=== PATIENT | female | born 1990 | race Caucasian/White ===

== ENCOUNTER 2023-08-09 13:01 | Emergency (ER) | payer BC, SELFPAY ==
--- NOTE | ~2023-08-09 | XR_ITS ---
EXAMINATION: XR chest 2V DATE: 08/09/2023 13:47 INDICATION: Cough and shortness of breath TECHNIQUE: PA and lateral views of the chest are obtained. COMPARISON: None available FINDINGS: There are minimal airspace opacities of the right mid and lower lung zones. Calcified nodul es of the left lower lung zone are consistent with old granulomatous disease. No pleural effusion or pneumothorax. The cardiomediastinal silhouette is normal. There is mild thoracic spondylosis. IMPRESSION: 1. Minimal airspace opacities of the right middle lower lung zones, likely pneumonia. Reviewed, dictated and finalized at location [facility] IMPRESSION: 1. Minimal airspace opacities of the right middle lower lung zones, likely pneu monia.
[2023-08-09 13:12] VITALS: BP 127/77; PULSE 87; RESP 18; TEMP 37.4; O2SAT 100
--- NOTE | 2023-08-09 13:37 | ED.GENADULT ---
HPI - General Adult General Chief complaint: Upper Respiratory Infection Stated complaint: cough causing sob Source: patient Mode of arrival: ambulatory Limitations: no limitations History of Present Illness HPI narrative: Patient presents for evaluation of respiratory symptoms. She indicates she tested positive for influenza last week at a clinic in [place], [place]. She was told she had otitis media on the left. She was given a prescription for azithromycin which she has taken. She still has some fullness in her ears however she states she feels like she no longer has an ear infection . She reports SOB and developed chest pain today that radiates into her back. She denies any fever, sore throat, nausea, vomiting, diarrhea. She does not smoke. She is not taking any OTC meds for her symptoms. Related Data Allergies Allergy/AdvReac Type Severity Reaction Status Date / Time No Known Allergies Allergy Unverified 12/13/18 17:22 Review of Systems Review of Systems: CONSTITUTIONAL: Denies fever, chills, or sweats. EYES: Denies visual changes, redness, or discharge. ENT: Reports fullness in both ears. Denies rhinorrhea, congestion, sore throat. CARDIOVASCULAR: Reports chest pain as of today. Denies palpitations, or edema. RESPIRATORY: Reports cough and shortness of breath GASTROINTESTINAL: Denies abdominal pain, nausea, vomiting, or diarrhea. GENITOURINARY: Denies dysuria or hematuria. SKIN: Denies rash or itching. MUSCULOSKELETAL: Denies back pain, joint pain, or myalgia. NEUROLOGIC: Denies headache, numbness, dizziness, or weakness. PSYCHIATRIC: Denies anxiety or depression. [facility]LY [facility] Past Medical History Medical History No pertinent past medical history Surgical History Surgical History No pertinent past surgical history Family History Family History Mother Family history non-contributory Social History Social History Smoking status: Never smoker Alcohol intake: never Substance use: never Living arrangements: with family Gender identity (if verbalized by the patient): Female Spiritual care concerns: No Exam Narrative: GENERAL: Well-appearing, well-nourished, and in no acute distress. HEAD: Normocephalic, atraumatic. EYES: PERRLA and EOMI. ENT: Nares clear, no rhinorrhea or epistaxis. Mucous membranes moist. Oropharynx without tonsillar hypertrophy exudate or other lesions. Bilateral TMs pearly valentino nonbulging NECK: Supple. No adenopathy or masses. No carotid bruits or JVD CHEST: Rales and mild wheezing noted in posterior lung beaver bilaterally HEART: Regular rate and rhythm. No murmur heard. Normal peripheral pulses. ABDOMEN: Soft, nontender, nondistended, normal active bowel sounds. EXTREMITIES: Normal range of motion. No edema. SKIN: Warm, dry, no rash. NEURO: No focal deficits. Alert and oriented x3. PSYCH: Normal mood and affect. Course Course Emergency Course: THIS IS A 33-YEAR-OLD FEMALE WHO PRESENTED FOR EVALUATION OF RESPIRATORY SYMPTOMS. CHEST X-RAY CONSISTENT WITH PNEUMONIA. WILL DISCHARGE WITH AUGMENTIN AND DOXYCYCLINE. SHE INDICATES SHE HAS TOLERATED AUGMENTIN IN THE PAST BUT MAY NEED TO TAKE A BENADRYL TO REDUCE SOME ITCHING SHE HAD IN HER HANDS. WILL ALSO DISCHARGE WITH PREDNISONE AND ALBUTEROL INHALER. FOLLOW UP WITH PRIMARY PROVIDER. GO TO THE ER FOR WORSENING SYMPTOMS. PT IN AGREEMENT WITH PLAN OF CARE. Level of Care: Express Care Visit Vital Signs Vital signs: Vital Signs Temperature 37.4 C 08/09/23 13:12 Pulse Rate 87 08/09/23 13:12 Respiratory Rate 18 08/09/23 13:12 Blood Pressure 127/77 08/09/23 13:12 Pulse Oximetry 100 08/09/23 13:12 Oxygen Delivery Room Air 08/09/23 13:12 Temperature
== END 2023-08-09 14:19 | disposition home or self-care (01) ==
PROVIDERS: Emergency Provider Nurse Practitioner
DX: J18.9 Pneumonia, unspecified organism (principal)
CPT/HCPCS: 71046; 99213; G0463

== ENCOUNTER 2024-02-13 14:27 | Emergency (ER) | payer BC, SELFPAY ==
[2024-02-13 14:37] VITALS: BP 176/91; PULSE 71; RESP 20; TEMP 36.1; O2SAT 100
--- NOTE | 2024-02-13 15:34 | ED.EYEPROB ---
HPI - Eye Problem General Chief complaint: Eye Problems Stated complaint: left eye burning and watering Source: patient Mode of arrival: ambulatory Limitations: no limitations History of Present Illness HPI Narrative: 33-year-old female presented for complaint of left eye irritation and tearing for about 1 week. Reports it feels like something is in the eye over the past 2 days. Endorses mild light sensitivity. States after exposure to chlorine she noticed the eyes were red, she stopped wearing contact lenses after 3 days, then restarted wearing them about 3 days ago. Denies vision changes, swelling, headache, n/v/d/f/c. chief complaint: eye pain Related Data Allergies Allergy/AdvReac Type Severity Reaction Status Date / Time No Known Allergies Allergy Unverified 12/13/18 17:22 Review of Systems Review of Systems: CONSTITUTIONAL: Denies body aches, fever, chills EYES: Endorses redness and pain to left eye; FB sensation, photophobia Denies visual changes ENT: Denies rhinorrhea, congestion, sore throat, or otalgia. CARDIOVASCULAR: Denies chest pain, palpitations RESPIRATORY: Denies cough or dyspnea. SKIN: Denies rash, itching, or wounds. MUSCULOSKELETAL: Denies back pain, joint pain, or myalgia. NEUROLOGIC: Denies headache All systems reviewed & are unremarkable except as noted in HPI and below PMFSH Past Medical History Medical History No pertinent past medical history Surgical History Surgical History No pertinent past surgical history Family History Family History Mother Family history non-contributory Social History Social History Smoking status: Never smoker Alcohol intake: never Substance use: never Living arrangements: with family Gender identity (if verbalized by the patient): Female Spiritual care concerns: No Comments At time of signature, I have reviewed and agree with nursing past medical, surgical, social and family history unless otherwise noted. Please see nursing chart for further information. There is no relevant family history pertinent to the presenting complaint Exam Narrative: GENERAL: Well-appearing HEAD: Normocephalic, atraumatic. EYES: Left eye corneal abrasion visible on exam at 7o'clock position over iris; mild left conjunctival injection and tearing, minimal eye lid swelling. EOMI. Lid eversion shows no FB. ENT: Mucous membranes pink and moist. No rhinorrhea. HEART: Regular rate and rhythm. ABDOMEN: Soft, nontender, nondistended SKIN: Warm, dry, no rash. Normal skin turgor. NEURO: No focal deficits. Alert and oriented x3 PSYCH: Normal affect. Course Course Emergency Course: Patient is aware of diagnosis, understands and agrees to treatment plan. Anticipatory guidance given. Patient agrees to follow-up as directed and is aware of reasons to seek care at the emergency department. Portions of this record may have been created with voice recognition software Level of Care: Express Care Visit Vital Signs Vital signs: Vital Signs Temperature 97.0 F L 02/13/24 14:37 Pulse Rate 71 02/13/24 14:37 Respiratory Rate 20 02/13/24 14:37 Blood Pressure 176/91 H 02/13/24 14:37 Pulse Oximetry 100 02/13/24 14:37 Oxygen Delivery Room Air 02/13/24 14:37 Temperature 97.0 F L 02/13/24 14:37 Pulse Rate 71 02/13/24 14:37 Respiratory Rate 20 02/13/24 14:37 Blood Pressure 176/91 H 02/13/24 14:37 Pulse Oximetry 100 02/13/24 14:37 Oxygen Delivery Room Air 02/13/24 14:37 MDM - Eye Problem MDM Narrative Medical decision making narrative: Discussed physical exam findings. Advised supportive measures and signs/symptoms to go to the ER. Pt is appropriate for outpt treatment and f/u. Differentia
== END 2024-02-13 15:50 | disposition home or self-care (01) ==
PROVIDERS: Emergency Provider Nurse Practitioner Family
DX: S05.02XA Injury of conjunctiva and corneal abrasion without foreign body, left eye, initial encounter (principal); X58.XXXA Exposure to other specified factors, initial encounter
CPT/HCPCS: 99213; G0463

== ENCOUNTER 2024-07-21 15:29 | Emergency (ER) | payer BC, SELFPAY ==
[2024-07-21 15:44] VITALS: BP 128/81; PULSE 70; RESP 20; TEMP 36.4; O2SAT 99
[2024-07-21 16:12] LABS: EDSTREPNEGPOS1 Negative (Negative)
--- NOTE | 2024-07-21 16:19 | ED_ITS ---
HPI - URI/Sore Throat General Chief Complaint: Upper Respiratory Infection Stated Complaint: throat/ congestion Time Seen by Provider: 07/21/24 16:00 Source: patient, RN notes reviewed and old records reviewed Mode of arrival: ambulatory Limitations: no limitations History of Present Illness HPI Narrative: 34 year old female accompanied by 2 children presents to express care with complaints of 4 day history of nasal congestion , some sore throat that is a little better today no fevers known with some cough noted. Patient reports that she has taken vitamin C for her symptoms. Reports that she also had interval of sinus congestion about 2 weeks ago that seemed to get better till the past 4 days. MD elicited complaint: cough, sore throat, rhinorrhea and nasal congestion Pertinent past history: pneumonia and other (strep throat) Onset (ago): day(s) (4 days this interval and previous similar symptoms 2 weeks ago.) Severity: mild Able to tolerate fluids by mouth: Yes Treatments prior to arrival: other (Vitamin C) Related Data Allergies Allergy/AdvReac Type Severity Reaction Status Date / Time No Known Allergies Allergy Unverified 12/13/18 17:22 Review of Systems Review of Systems: CONSTITUTIONAL: Denies malaise, chills, sweats, or fever. EYES: Denies visual changes, redness, or discharge. ENT: Reports rhinorrhea, congestion, sinus pain, no otalgia and positive for sore throat. CARDIOVASCULAR: Denies chest pain, palpitations, or edema. RESPIRATORY: Reports cough.? Denies dyspnea. GASTROINTESTINAL: Denies abdominal pain, nausea, vomiting, diarrhea SKIN: Denies rash or itching. MUSCULOSKELETAL: Denies myalgia. NEUROLOGIC: Denies acute headache. All systems reviewed & are unremarkable except as noted in HPI and below PMFSH Past Medical History Medical History Pneumonia Strep throat Surgical History Surgical History No pertinent past surgical history Family History Family History Mother Family history non-contributory Social History Social History Smoking status: Never smoker Alcohol intake: never Substance use: never Living arrangements: with family Gender identity (if verbalized by the patient): Female Spiritual care concerns: No Comments At time of signature, agree with nursing past medical, surgical, social and family history. There is no relevant family history pertinent to the presenting complaint Exam Narrative: GENERAL: Well-appearing, well-nourished, and in no acute distress. HEAD: Normocephalic EYES: PERRLA, conjunctivae clear ENT: Nares clear, turbinates edematous and erythematous, clear discharge. Mucous membranes moist. TM pearly valentino with dull light reflex bilaterally; no tragal tenderness. Oropharynx erythematous without lesions. Tonsils red not enlarged and without exudate, no drooling, no hoarseness, no trismus, uvula midline.post nasal drainage NECK: Supple. No lymphadenopathy CHEST: Clear to auscultation, breath sounds equal. No wheezing, rhonchi, rales, or stridor. No respiratory distress, speaks in full sentences.cough noted SAO2 99% on room air HEART: Regular rate and rhythm. No murmur heard. SKIN: Warm, dry, no rash. NEURO: Alert and oriented x3. PSYCH: Normal mood and affect Course Course Emergency Course: Patient is aware of diagnosis, understands and agrees to treatment plan.? Anticipatory guidance given.? Patient agrees to follow-up as directed and is aware of reasons to seek care at the emergency department. Portions of this record may have been created with voice recognition software Level of Care: Express Care Visit Vital Signs Vital signs: Vital Signs Temperature 36.4 C L 07/21/24 15:44 Pulse Rate 70 07/21/24 15:44 Respiratory Rate 20 07/21/24 15:44 Blood Pressure 128/81 07/21/24 15:44 Pulse Oximetry 99 07/21/24 15:44 Oxygen Delivery Room Air 07/21/24 15:44 Temperature 36.4 C L 07/21/24 15:44 Pulse Rate 70 07/21/24 15:44 Respiratory Rate 20 07/21/24 15:44 Blood Pressure 128/81 07/21/24 15:44 Pulse Oximetry 99 07/21/24 15:44 Oxygen Delivery Room Air 07/21/24 15:44 Reviewed MDM - URI/Sore Throat MDM Narrative Medical decision making narrative: Differential diagnosis considered: Grant virus, strep pharyngitis, allergic rhinitis, upper respiratory tract infection, sinusitis, rhinosinusitis, nasopharyngitis. viral pharyngitis, otitis media, otitis externa, pneumonia, bronchitis, viral cough syndrome, viral syndrome, and influenza.? Exam findings show no acute concerns or changes; patient is non-toxic appearing and is in no distress.? Patient is appropriate for outpatient treatment and follow-up. Differential Diagnosis Differential diagnosis: Likely upper respiratory infection, sinusitis, viral infection, pharyngitis and other (strep pharyngitis) Medical Records Attestation: I reviewed the patient's medical records. Lab Data Attestation: I reviewed the patient's lab results. Lab results narrative: strp screen negative,culture sent Labs: Lab Results 07/21/24 Range/Units 16:10 POC Grp A Strep Screen Negative (Negative) Critical Care Time Critical Care Time Critical Care Time: No Discharge Plan Discharge Clinical Impression: Sinusitis Patient Disposition: Home, Self-Care Condition: Stable Instructions: Antibiotic Form, Sinusitis (ED) Additional Instructions: Increase fluids especially juices and water [id number] cough and cold medicine of your choice for your symptoms Zyrtec Claritin or Kiersten daily heat to the face 20-30 minutes 4-6 times a day for pain Salt water gargles, throat lozenges or throat sprays as desired Antibiotic as directed--finished the medication If your symptoms persist, change or worsen significantly before you can contact your personal physician then please, without delay, go to the emergency department for further evaluation. Follow-up with PCP in 7-10 days or sooner if needed Follow up with PCP soon in regards to your blood pressure which is elevated above threshold for referral. Blood pressure above 120/80 may indicate pre- hypertension. One hundred twenty you over 81 Prescriptions: New azithromycin 250 mg tablet See Rx Instructions .ROUTE .COMPLEX Qty: 6 0RF Rx Instructions: For 250 mg dose pack: take 500 mg today (day 1), then 250 mg for 4 days (days 2-5) Follow-up/Referrals: PHYSICIAN,HOUSING QUALITY STANDARD INSPECTOR [Primary Care Provider] - Time of Disposition: 16:57 Quality Macey Coma Scale Eyes: Open Verbal: Oriented and Alert Motor: Follows Commands [place] Coma Total Score: 15
== END 2024-07-21 17:06 | disposition home or self-care (01) ==
PROVIDERS: Emergency Provider Registered Nurse
DX: J32.9 Chronic sinusitis, unspecified (principal)
CPT/HCPCS: 87081; 87880; 99213; G0463